=== PATIENT | female | born 1940 | race Caucasian/White ===

== ENCOUNTER 2024-04-06 18:24 | Emergency (ER) | payer MEDICARE, BC, SELFPAY ==
[2024-04-06 18:47] VITALS: BP 140/111
[2024-04-06 21:22] VITALS: BP 161/95
--- NOTE | 2024-04-06 23:58 | ED.GENMED ---
History of Present Illness
General
Chief Complaint: Bowel Problem
Source: patient
Exam Limitations: none
Time Seen by Provider: 04/06/24 22:11
Nursing documentation reviewed up to this point in time: agreed with
History of Present Illness
History of Present Illness:
This is an 84-year-old woman with remote history of bowel resection, history of chronic constipation, maintained on Metamucil nightly as well as prune juice daily. She admits to generally passing fairly firm to hard stools but stools have been more
firm and less often over the past 6 to 7 weeks. She denies abdominal pain, no nausea nor vomiting. No change in appetite. No fever nor chills.
She began taking Colace once daily 2 days ago and then took a dose of MiraLAX today. She also tried a fleets enema tonight without relief.
She admits to moderate rectal pressure but no pain.
No rectal bleeding.
Past History
Past History
ED Past Medical History: Hypercholesterolemia, Hypothyroidism and Other (Constipation)
ED Past Surgical History: Bowel resection, Cholecystectomy and Other (Thyroidectomy, hernia repair)
Social History
Tobacco: Non-smoker
Alcohol: None
Personal:
Living: with family
Employment: Retired
Family History
Family History: Other (Noncontributory)
Phy Exam
Physical Exam
Physical Exam:
GENERAL: 84-year-old woman appears her stated age, awake and alert, pleasant, appears in no acute distress.
EYE: anicteric
NECK: Supple, nontender, no meningismus, no significant adenopathy.
ENT: oral mucosa is moist.
CARDIAC: Regular rate and rhythm. no murmur.
LUNGS: Clear breath sounds bilaterally, no acute respiratory distress, no wheezes/rales/rhonchi
ABDOMEN: Soft, nondistended, without focal tenderness, no r/g, no cvat. normoactive BS. Rectal exam reveals moderate amount of firm to pasty stool high in the rectal vault. Heme-negative.
NEUROLOGICAL: Alert and oriented x3, no focal neuro deficits. Gait is proctor and steady.
SKIN: Warm and dry, normal color, skin intact. No rash.
MUSCULOSKELETAL: No C/C/E. peripheral pulses are full and equal b/l. No palpable tenderness.
PSYCH: Normal and appropriate interaction.
Course
Orders/Labs/Results
Orders:
Orders
04/06/24 20:40
Abdomen Xray - 1 View [CR Abdomen - 1 View] Urgent
Comment:
Reason For Exam: fos
04/06/24 22:41
Enema- Treatment ONCE
Type: Milk of Molasses
Vital Signs
Initial and Last Documented VS:
Initial Vital Signs
Temp Pulse Resp BP Pulse Ox
99.0 F 86 16 140/111 96
04/06/24 18:47 04/06/24 18:47 04/06/24 18:47 04/06/24 18:47 04/06/24 18:47
Last Documented Vital Signs
Temp Pulse Resp BP Pulse Ox
99.0 F 79 16 156/91 99
04/06/24 18:47 04/07/24 00:20 04/06/24 18:47 04/07/24 00:20 04/07/24 00:20
MDM/Problems Addressed
Differential Diagnosis Includes:
84-year-old woman with history of chronic constipation, slow transit presents with increased symptoms of constipation over the past 6 weeks without abdominal pain nor vomiting nor fever. No urinary symptoms.
Abdominal x-ray shows moderate amount of stool at the rectum otherwise no evidence of obstruction nor significant stool burden.
Abdomen is soft without appreciable tenderness.
I did attempt digital disimpaction but encountered mod amount of soft to firm stool up high in the rectum and not amenable to digital disimpaction.
Therefore will trial a milk of molasses enema.
Overall well in appearance. Appears euvolemic. No significant associated symptoms. At this point no indication for laboratory studies.
Chronic conditions affecting care: Previous abdomnial surgery
*Radiology
Radiology exam reviewed: preliminary read by ED provider (Abdominal series shows moderate stool at the rectum, otherwise no evidence of obstruction or significant stool burden.)
*Pulse Oximetry
Patient hypoxic: no
*Critical Care Note
Total Time (30-74mins, 75-104mins- exclusive of procedures): Not Applicable
Update Note
Update Note:
04/07/2024 0003 AM
Patient reports complete relief after enema and is eager to be discharged to home.
Recommend she continue Metamucil, add MiraLAX on a daily basis as well.
Discussed importance of staying well-hydrated as well as at high fiber foods.
Prompt follow-up with PCP for recheck.
ED Attending Note
-
Portions of this chart may have been created with voice recognition software.� Occasional wrong word or��sound alike� substitutions may have occurred due to the inherent limitations of voice recognition software.
Discharge Plan
Departure
Patient Disposition: Home (Routine Discharge)
Date of Disposition: 04/06/24
Time of Disposition: 23:58
Patient with high blood pressure during this ER visit?: Yes
Condition: Good
Discharge Problem:
Fecal impaction in rectum
Instructions: Fecal Impaction (DC), BLOOD PRESSURE
Referrals:
Keith Rodriguez MD [Family Provider] - Call in 1-3 days for appt
Activity Restrictions/Additional Instructions:
Continue nightly Metamucil as well as add a daily dose of MiraLAX.
You can continue prune juice on a daily basis and along with this and wanted to try and add high-fiber foods such as vegetables, whole grains.
Interventions
Interventions:
*General Assessment Last Done: 04/06/24 21:35
ED- Fall Risk Assessment Last Done: 04/06/24 21:35
*Nursing Disposition Last Done: 04/07/24 00:21
KZ-[id number]-Udbcjpisha Assessment Last Done: 04/06/24 21:35
Discharge Date and Time
Discharge Date/Time: 04/07/24 00:22
Print Language: [id number]
[2024-04-07 00:20] VITALS: BP 156/91
== END 2024-04-07 00:22 | disposition home or self-care (01) ==
LOC: EMR 18:24
PROVIDERS: EMERGENCY PHYSICIAN Emergency Medicine; FAMILY PHYSICIAN Internal Medicine
DX: K56.41 Fecal impaction (principal); E03.9 Hypothyroidism, unspecified; E78.00 Pure hypercholesterolemia, unspecified; Z90.49 Acquired absence of other specified parts of digestive tract
CPT/HCPCS: 99283; 74018